=== PATIENT | male | born 1960 | race Caucasian/White ===

== ENCOUNTER 2024-05-31 10:00 | Outpatient (CLI) | payer BC ==
[2024-05-31 10:44] LABS: #Basophils 0.05 10x3/uL (0.0-0.2); #Eosinophils 0.17 10x3/uL (0.0-0.5); #Monocytes 0.43 10x3/uL (0.0-1.1); #Neutrophils 3.17 10x3/uL (1.5-8.4); %Eosinophils 3.4 % (0.0-6.0); %Lymphocytes 23.1 % (18.0-47.0); %Monocytes 8.6 % (0.0-10.0); %Neutrophils 63.7 % (40.0-75.0); Hematocrit 39.6 % (38.8-50.0); Hemoglobin 13.5 g/dL (13.5-17.5); Mean Corpuscular HGB CONC 34.1 g/dL (32.0-36.0); Mean Corpuscular Hemoglobin 31.3 pg (27.0-33.0); Mean Corpuscular Volume 91.9 fL (81.2-95.1); Mean Platelet Volume 8.9 fL (7.4-10.4); Platelet Count 244 10x3/uL (150-450); RBC Distribution Width 12.7 % (11.5-14.5); Red Blood Cell (RBC) Count 4.31 10x6/uL (4.32-5.72)
[2024-05-31 10:58] LABS: ALT (SGPT) 17 U/L (8-55); AST (SGOT) 15 U/L (5-34); Alkaline Phosphatase 85 U/L (40-110); Anion Gap 12 mmol/L (10-20); BUN (Urea Nitrogen) 20 mg/dL (8.4-25.7); Bilirubin, Total 1.7 mg/dL (0.2-1.2); Calc. Creatinine Clearance 0 mL/min (70-130); Calcium 9.5 mg/dL (7.8-10.44); Carbon Dioxide 26 mmol/L (23-31); Chloride 107 mmol/L (98-107); Estimated GFR 96; Globulin 2.6 g/dL (2.4-3.5); Glucose 97 mg/dL (80-115); Potassium 4.5 mmol/L (3.5-5.1); Protein, Total 6.6 g/dL (5.8-8.1); Sodium 140 mmol/L (136-145)
== END 2024-05-31 10:01 | disposition home or self-care (01) ==
LOC: CSHLAB 10:00
PROVIDERS: ATTEND Surgery
DX: Z01.818 Encounter for other preprocedural examination (principal); K40.90 Unilateral inguinal hernia, without obstruction or gangrene, not specified as recurrent
CPT/HCPCS: 80053; 85025; 93005; 93010

== ENCOUNTER 2024-06-02 06:37 | Day surgery (SDC) | payer BC ==
[2024-05-31 10:24] VITALS: BMI 25.0
[2024-06-02] MEDS ORDERED: Bupivacaine/Epinephrine 0.25% 30 ML VIAL ONE (07:39)
[2024-06-02] MEDS ORDERED: PROPOFOL 20 ML ONE (08:14)
[2024-06-02] MEDS ORDERED: fentaNYL 50 mcg/mL 1 mL Vial ONE ×2 (08:14→09:24)
[2024-06-02] MEDS ORDERED: Rocuronium Bromide 10 MG/ML (10ML VIAL) ONE (08:14)
[2024-06-02] MEDS ORDERED: Lidocaine 1% PF 5 ML VIAL ONE (08:14)
[2024-06-02] MEDS ORDERED: Midazolam HCl 2 mg/2 ml Vial ONE (08:15)
[2024-06-02] MEDS ORDERED: CEFAZOLIN 2 GM VIAL ONE (08:16)
[2024-06-02] MEDS ORDERED: ePHEDrine Sulfate 50 MG/10 ML VIAL ONE (08:37)
[2024-06-02] MEDS ORDERED: Ondansetron PF 4 MG/2 ML Vial ONE (08:38)
[2024-06-02] MEDS ORDERED: Dexamethasone 20 MG/5 ML VIAL ONE (08:38)
[2024-06-02] MEDS ORDERED: HYDROcodone/Acetaminophen 5/325 mg Tablet ONE (10:21)
== END 2024-06-02 10:50 | disposition home or self-care (01) ==
LOC: CSHSDC 06:37
PROVIDERS: ATTEND Surgery
PROC: 0YU54JZ Supplement Right Inguinal Region with Synthetic Substitute, Percutaneous Endoscopic Approach (ICD-10-PCS; principal; 2024-06-02)
DX: K40.90 Unilateral inguinal hernia, without obstruction or gangrene, not specified as recurrent (principal); E07.9 Disorder of thyroid, unspecified; Z79.899 Other long term (current) drug therapy; Z79.890 Hormone replacement therapy
CPT/HCPCS: C1781; J1100; J2250; J2405; J2704; J3010; S2900